=== PATIENT | male | born 1965 | race Caucasian/White ===

== ENCOUNTER 2019-01-08 06:33 | Day surgery (SDC) | payer OTHER ==
[~2019-01-08 06:33] MED LIST: Lactated Ringers 1,000 ML IV SCH
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
[2019-01-08] MEDS ORDERED: Lidocaine 1% 20 ML MDV ONE (07:22)
[2019-01-08] MEDS ORDERED: Propofol 200 MG/20 ML SDV ONE (07:24)
[2019-01-08] MEDS ORDERED: fentaNYL 250 MCG/5 ML SDV ONE (07:25)
[2019-01-08] MEDS ORDERED: Midazolam 1 MG/ML 2 ML SDV ONE (07:25)
[2019-01-08] MEDS ORDERED: Lidocaine 2% 5 ML SDV ONE (07:25)
[2019-01-08] MEDS ORDERED: Ondansetron 4 MG/2 ML SDV ONE (07:27)
[2019-01-08] MEDS ORDERED: Acetaminophen/HYDROcodone 325-5 MG Tab PO PRN (08:00)
[2019-01-08] MEDS ORDERED: ceFAZolin 2 GM in Premix Bag 1 BAG IV SCH (08:00)
[2019-01-08] MEDS ORDERED: EPINEPHrine 1:10,000 1 MG/10 ML Syringe IVPUSH PRN (08:23)
[2019-01-08] MEDS ORDERED: Albuterol 0.083% 2.5 MG/3 ML Neb Soln NEB PRN (08:23)
[2019-01-08] MEDS ORDERED: Naloxone 0.4 MG/ML Syringe IVPUSH PRN (08:23)
[2019-01-08] MEDS ORDERED: Atropine 0.1 MG/ML 10 ML Syringe IVPUSH PRN ×2 (08:23)
[2019-01-08] MEDS ORDERED: 50% Dextrose in Water 50 ML Syringe IVPUSH PRN (08:23)
[2019-01-08] MEDS ORDERED: fentaNYL 100 MCG/2 ML SDV IVPUSH PRN (08:23)
--- NOTE | 2019-01-08 08:56 | PCM.OPNOTE ---
- General Post-Op/Procedure Note Date of Surgery/Procedure: 01/08/19 Operative Procedure(s): Right knee arthroscopy with chondroplasty mfc, lfc Post-Op Diagnosis: R knee DJD Anesthesia Technique: General LMA Primary Surgeon: Reba Sheldon Developing Machine Operator: Jazmin Ortiz in mLs: 5 Condition: Good Free Text/Narrative:: tt=25 min #[id number]
[2019-01-08 10:17] VITALS: BP 128/74
--- NOTE | 2019-01-08 15:06 | OR ---
SURGEON: Reba Sheldon MD DATE OF PROCEDURE: 01/08/2019 PREOPERATIVE DIAGNOSIS: Degenerative joint disease, right knee. POSTOPERATIVE DIAGNOSIS: Degenerative joint disease, right knee. PROCEDURE: Right knee arthroscopy with chondroplasty of the medial and lateral femoral condyle. CLOTHES MARKER: GOLDIE Guzman. ANESTHESIA: General. ESTIMATED BLOOD LOSS: 5 mL. TOURNIQUET TIME: 25 minutes. COMPLICATIONS: None. DEEP VENOUS THROMBOSIS PROPHYLAXIS: Not indicated. IMPLANTS USED: None. BRIEF HISTORY: Joe is a 53-year-old male who has had complaint of persistent right knee pain along with inability to fully extend his knee. X-rays did show degenerative findings. Due to his lack of response to conservative treatment, I did recommend surgical intervention. The risks and goals of the procedure were discussed with the patient and were documented preoperatively. He agreed to proceed. DESCRIPTION OF PROCEDURE: The patient was properly identified and brought to the operating room. He was transferred from the OR cart and placed on the operating table in supine position. General anesthesia was administered. After adequate anesthesia was obtained, a well-padded tourniquet was applied to the right lower extremity. The right lower extremity was then prepped in standard fashion using ChloraPrep solution. It was then sterilely draped. A time-out was performed to ensure correct site and procedure. Preoperative antibiotics were given. The surgical site had been marked preoperatively. An Esmarch was used to exsanguinate the right lower extremity and the tourniquet was inflated to 250 mmHg. A lateral portal arthrotomy was established. Blunt trocar and cannula were introduced into the suprapatellar pouch. Camera, inflow, and outflow were assembled. The suprapatellar pouch showed no significant synovitis. The patellofemoral joint was visualized. The patella appeared to track centrally. 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 I then extended down to the lateral and medial gutters. No loose bodies were identified. Osteophyte formation was noted along the medial femoral condyle as well as the lateral femoral condyle. I then entered the medial compartment. A medial portal arthrotomy was established. A blunt probe was inserted. The meniscus was visualized and probed. No tearing or instability was noted. He did have an area of grade 3 chondromalacia with loose cartilaginous flaps along the lateral aspect of the medial femoral condyle. This was resected with a shaver to a stable remnant. Diffuse grade 2 to grade 3 chondromalacia was noted along the medial tibial plateau. I then entered the notch. Both the ACL and PCL were visualized and probed. As it was probing the ACL, the probe did break along the shaft. I was able to place a retriever. It was difficult to pull the broken probe through the original portal and I elected to make a small anterior portal to retrieve the probe. It was retrieved without difficulty. The ACL and PCL were again probed. They were found to be intact. Mild synovitis was noted along the anterior aspect of the notch and this was resected with the shaver. I then entered the lateral compartment. The lateral meniscus was visualized and probed and found to be intact. He did have diffuse grade 2 to grade 3 chondromalacia along the lateral tibial plateau. There was also an area of full thickness cartilage loss along the lateral femoral condyle. This did show some instability of the cartilage and a shaver was introduced to perform a chondroplasty. The remainder of the cartilage appeared intact. Instruments were then removed from the knee. The portal sites were closed with 3-0 nylon. 1% Lidocaine was injected along the portal tracts. Xeroform gauze was placed over the wounds and a bulky dressing was applied. Tourniquet was then deflated. He was awakened from his anesthetic and transferred back to the operating room cart. He was brought to recovery room in stable condition. All needle and sponge counts were correct. FELIBERTO / JOHN /[id number]
== END 2019-01-08 10:44 | disposition home or self-care (01) ==
LOC: MW.SDS 06:33
PROVIDERS: ATTEND Orthopaedic Surgery
DX: M17.11 Unilateral primary osteoarthritis, right knee (principal); M22.41 Chondromalacia patellae, right knee; M65.861 Other synovitis and tenosynovitis, right lower leg; E11.9 Type 2 diabetes mellitus without complications; Z79.4 Long term (current) use of insulin
CPT/HCPCS: 29877; 82962; J2001; J2250; J2405; J2704; J3010; J7120; 01400; 88304

== ENCOUNTER 2024-08-22 16:32 | Inpatient (IN) | payer OTHER ==
[2024-08-22 16:58] LABS: BASOPHILS ABSOLUTE AUTO 0.02 K/uL (0.00-0.20); BASOPHILS PERCENT AUTO 0.2 % (0.0-1.0); EOSINOPHILS PERCENT AUTO 1.1 % (0.0-6.0); HEMATOCRIT 44.9 % (42.0-52.0); HEMOGLOBIN 14.7 g/dL (14.0-18.0); IMMATURE GRAN ABSOLUTE AUTO 0.02 K/uL (0.00-0.05); IMMATURE GRAN PERCENT AUTO 0.2 % (0.0-0.4); LYMPHOCYTES ABSOLUTE AUTO 0.75 K/uL (1.00-4.80); LYMPHOCYTES PERCENT AUTO 8.1 % (24.0-44.0); MEAN CORPUSCULAR HEMOGLOBIN 26.4 pg (28.0-32.0); MEAN CORPUSCULAR HGB CONC 32.7 g/dL (32.0-36.0); MEAN CORPUSCULAR VOLUME 80.8 fL (83.0-99.0); MONOCYTES ABSOLUTE AUTO 0.61 K/uL (0.00-0.80); MONOCYTES PERCENT AUTO 6.6 % (0.0-8.0); NEUTROPHILS ABSOLUTE AUTO 7.74 K/uL (1.80-7.70); NEUTROPHILS PERCENT AUTO 83.8 % (41.0-71.0); PLATELET COUNT,PLT 249 K/uL (150-400); RED BLOOD CELL COUNT 5.56 M/uL (4.52-5.90); WHITE BLOOD CELL COUNT,WBC 9.24 K/uL (3.9-11.3)
[2024-08-22] MEDS: Sodium Chloride 0.9% 1,000 ML IV ONE (16:58)
[2024-08-22] MEDS: Sodium Chloride 0.9% 2.5 ML Syringe FLUSH PRN (16:59)
[2024-08-22] MEDS: Sodium Chloride 0.9% 10 ML Syringe FLUSH PRN (16:59)
[2024-08-22] MEDS: Morphine 4 MG/ML Syringe IVPUSH ONE (17:00)
[2024-08-22] MEDS: Ondansetron 4 MG/2 ML SDV IVPUSH ONE (17:00)
[2024-08-22] MEDS: Piperacillin/Tazobactam 4.5 GM in Sodium Chloride 0.9% 100 ML IV ONE (17:21)
[2024-08-22 17:30] LABS: A/G RATIO 0.5 (0.9-1.6); ALBUMIN 2.7 g/dL (3.4-5.0); BILIRUBIN TOTAL 1.5 mg/dL (0.2-1.0); CALCIUM 9.2 mg/dL (8.5-10.1); CARBON DIOXIDE,CO2 27.6 mmol/L (21.0-32.0); EST CRCL DRUG DOSING (CG) 93.62 mL/min; POTASSIUM,K 3.5 mmol/L (3.5-5.1); PROTEIN TOTAL,TP 7.7 g/dL (6.4-8.2)
[2024-08-22] MEDS ORDERED: diphenhydrAMINE 50 MG/ML SDV IVPUSH PRN (17:37)
[2024-08-22] MEDS ORDERED: Ondansetron 4 MG/2 ML SDV IVPUSH PRN (17:37)
[2024-08-22] MEDS ORDERED: Sodium Chloride 0.9% 20 ML SDV IV PRN (17:37)
[2024-08-22] MEDS ORDERED: Sodium Chloride 0.9% 10 ML Syringe FLUSH PRN (17:37)
[2024-08-22] MEDS ORDERED: HYDROmorphone 2 MG/ML Syringe IVPUSH PRN (17:37)
[2024-08-22] MEDS ORDERED: Sodium Chloride 0.9% 2.5 ML Syringe FLUSH PRN (17:37)
[2024-08-22] MEDS ORDERED: Lactated Ringers 1,000 ML IV SCH (17:45)
[2024-08-22] MEDS ORDERED: Propofol 200 MG/20 ML SDV ONE (18:01)
[2024-08-22] MEDS ORDERED: fentaNYL 100 MCG/2 ML SDV ONE (18:01)
[2024-08-22] MEDS ORDERED: HYDROmorphone 0.5 MG/0.5 ML Syringe IVPUSH PRN (18:04)
[2024-08-22] MEDS ORDERED: Succinylcholine/Sod PF 100 MG/5 ML SYRINGE IV ONE (18:05)
[2024-08-22] MEDS ORDERED: Rocuronium Bromide 50 MG/5 ML Syringe ONE (18:06)
[2024-08-22 18:23] LABS: HEMOGLOBIN A1C 9.1 %
[2024-08-22] MEDS ORDERED: dexmedeTOMIDine HCl 200 MCG/2 ML SDV ONE (18:24)
[2024-08-22] MEDS ORDERED: Water For Injection, Sterile 20 ML ONE (18:24)
[2024-08-22] MEDS ORDERED: Bupivacaine 0.25% 30 ML SDV ONE (18:24)
[2024-08-22] MEDS ORDERED: Bupivacaine 0.5% 10 ML SDV ONE (18:49)
[2024-08-22] MEDS ORDERED: ceFAZolin 1 GM Vial ONE (18:50)
[2024-08-22] MEDS ORDERED: Ondansetron 4 MG/2 ML SDV ONE (19:48)
[2024-08-22] MEDS ORDERED: Ketamine HCL/NACL, ISO-OSM 50 MG/5 ML Syringe ONE (20:00)
[2024-08-22] MEDS ORDERED: Ketorolac 30 MG/ML SDV ONE (20:39)
[2024-08-22] MEDS ORDERED: Sugammadex Sodium 200 MG/2 ML VIAL IV ONE (20:39)
[2024-08-22] MEDS ORDERED: Glucagon,Human Recombinant 1 MG Vial IM PRN (21:22)
[2024-08-22] MEDS ORDERED: 50% Dextrose in Water 50 ML Syringe IVPUSH PRN (21:22)
[2024-08-22 22:04] LABS: HEMOGLOBIN 12.5 g/dL (14.0-18.0); MEAN CORPUSCULAR HEMOGLOBIN 26.6 pg (28.0-32.0); MEAN CORPUSCULAR HGB CONC 32.1 g/dL (32.0-36.0); MEAN PLATELET VOLUME 10.9 fL (9.4-12.4); PLATELET COUNT,PLT 212 K/uL (150-400); WHITE BLOOD CELL COUNT,WBC 8.48 K/uL (3.9-11.3)
[2024-08-22 22:22] LABS: CALCIUM 8.3 mg/dL (8.5-10.1); CARBON DIOXIDE,CO2 29.3 mmol/L (21.0-32.0); EST CRCL DRUG DOSING (CG) 93.62 mL/min; POTASSIUM,K 3.8 mmol/L (3.5-5.1)
[2024-08-23] MEDS: Sodium Chloride 0.9% 1,000 ML IV SCH (02:15)
[2024-08-23] MEDS: Piperacillin/Tazobactam 4.5 GM in Sodium Chloride 0.9% 100 ML IV SCH (02:15)
[2024-08-23] MEDS: Ketorolac 30 MG/ML SDV IVPUSH SCH ×2 (02:16→07:00)
[2024-08-23] MEDS: Acetaminophen 1,000 MG in Premix Bag 1 BAG IV SCH (02:17)
[2024-08-23 06:14] LABS: BASOPHILS ABSOLUTE AUTO 0.01 K/uL (0.00-0.20); BASOPHILS PERCENT AUTO 0.1 % (0.0-1.0); EOSINOPHILS ABSOLUTE AUTO 0.05 K/uL (0.00-0.45); EOSINOPHILS PERCENT AUTO 0.7 % (0.0-6.0); HEMOGLOBIN 12.2 g/dL (14.0-18.0); IMMATURE GRAN ABSOLUTE AUTO 0.01 K/uL (0.00-0.05); IMMATURE GRAN PERCENT AUTO 0.1 % (0.0-0.4); LYMPHOCYTES ABSOLUTE AUTO 0.53 K/uL (1.00-4.80); LYMPHOCYTES PERCENT AUTO 7.2 % (24.0-44.0); MEAN CORPUSCULAR HEMOGLOBIN 26.5 pg (28.0-32.0); MEAN CORPUSCULAR HGB CONC 32.1 g/dL (32.0-36.0); MEAN CORPUSCULAR VOLUME 82.6 fL (83.0-99.0); MEAN PLATELET VOLUME 10.6 fL (9.4-12.4); MONOCYTES ABSOLUTE AUTO 0.67 K/uL (0.00-0.80); NEUTROPHILS ABSOLUTE AUTO 6.14 K/uL (1.80-7.70); NEUTROPHILS PERCENT AUTO 82.9 % (41.0-71.0); PLATELET COUNT,PLT 219 K/uL (150-400); WHITE BLOOD CELL COUNT,WBC 7.41 K/uL (3.9-11.3)
[2024-08-23 06:30] LABS: CARBON DIOXIDE,CO2 29.8 mmol/L (21.0-32.0); CREATININE 0.9 mg/dL (0.8-1.3); EST CRCL DRUG DOSING (CG) 104.02 mL/min; POTASSIUM,K 3.4 mmol/L (3.5-5.1)
[2024-08-23] MEDS: Insulin Aspart 100 Units/ML 3 ML Pen SUBCUT SCH (07:50)
[2024-08-23] MEDS: Cyclobenzaprine 10 MG Tab PO SCH (09:37)
[2024-08-23] MEDS: Enoxaparin 40 MG/0.4 ML Syringe SUBCUT SCH (17:48)
[2024-08-23] MEDS: Polyethylene Glycol 3350 Powder 17 GM Packet PO SCH (20:48)
[2024-08-23] MEDS: Multivitamin Tab PO SCH (20:48)
[2024-08-24] MEDS: oxyCODONE 5 MG Tab PO PRN (02:45)
[2024-08-24 05:33] LABS: HEMATOCRIT 38.6 % (42.0-52.0); HEMOGLOBIN 12.3 g/dL (14.0-18.0); MEAN CORPUSCULAR HEMOGLOBIN 26.3 pg (28.0-32.0); MEAN CORPUSCULAR HGB CONC 31.9 g/dL (32.0-36.0); MEAN CORPUSCULAR VOLUME 82.5 fL (83.0-99.0); PLATELET COUNT,PLT 246 K/uL (150-400); RED BLOOD CELL COUNT 4.68 M/uL (4.52-5.90); WHITE BLOOD CELL COUNT,WBC 8.06 K/uL (3.9-11.3)
[2024-08-24 05:53] LABS: CALCIUM 8.5 mg/dL (8.5-10.1); CREATININE 0.8 mg/dL (0.8-1.3); EST CRCL DRUG DOSING (CG) 117.02 mL/min; POTASSIUM,K 3.4 mmol/L (3.5-5.1)
[2024-08-24] MEDS ORDERED: Ketorolac 10 MG Tab PO PRN (08:38)
[2024-08-24] MEDS: Ciprofloxacin 500 MG Tab PO SCH (08:55)
[2024-08-24] MEDS: metroNIDAZOLE 250 MG Tab PO SCH (08:55)
[2024-08-24] MEDS: Bisacodyl 5 MG Tab PO SCH (08:55)
[2024-08-24] MEDS: Polyethylene Glycol 3350 Powder 17 GM Packet PO SCH (08:55)
[2024-08-24] MEDS: Potassium Chloride 10 MEQ Tab.ER PO SCH (08:55)
[2024-08-24] MEDS: Cyclobenzaprine 10 MG Tab PO SCH (13:45)
[2024-08-25 10:50] LABS: CALCIUM 8.8 mg/dL (8.5-10.1); CREATININE 0.8 mg/dL (0.8-1.3); EST CRCL DRUG DOSING (CG) 117.02 mL/min; PHOSPHORUS 3.1 mg/dL (2.6-4.7); POTASSIUM,K 3.3 mmol/L (3.5-5.1)
[2024-08-25] MEDS: Potassium Chloride 20 MEQ Tab.ER PO SCH (11:53)
[2024-08-25 17:50] VITALS: BP 120/76; PULSE 98
== END 2024-08-25 18:15 | disposition home or self-care (01) | DRG 398 ==
LOC: MW.ED 16:32 → MW.MS 17:37 → MW.SDS 18:54 → OBSVTOIN 22:03 → MW.MS 22:11
PROVIDERS: ADMIT Surgery; ATTEND Surgery
PROC: 0WJG4ZZ Inspection of Peritoneal Cavity, Percutaneous Endoscopic Approach (ICD-10-PCS; 2024-08-22)
PROC: 0DTJ0ZZ Resection of Appendix, Open Approach (ICD-10-PCS; principal; 2024-08-22 19:00)
DX: K35.211 Acute appendicitis with generalized peritonitis, with perforation and abscess (principal); K56.7 Ileus, unspecified; K91.89 Other postprocedural complications and disorders of digestive system; M19.90 Unspecified osteoarthritis, unspecified site; E11.9 Type 2 diabetes mellitus without complications; E66.9 Obesity, unspecified; E87.6 Hypokalemia; Z98.890 Other specified postprocedural states; Z87.81 Personal history of (healed) traumatic fracture; Z68.33 Body mass index [BMI] 33.0-33.9, adult; Z87.442 Personal history of urinary calculi
CPT/HCPCS: 00840; 36415; 64488; 80048; 80053; 82947; 83036; 83605; 83735; 84100; 85025; 85027; 87040; 96365; 96375; 99285-25; A9270-GY; J0131; J0330; J0665; J0690; J1650; J1815-GY; J1885; J2270; J2405; J2543; J2704; J3010; J3490; J7030

== ENCOUNTER 2024-09-07 10:58 | Emergency (ER) | payer OTHER ==
[2024-09-07 11:12] LABS: BASOPHILS ABSOLUTE AUTO 0.04 K/uL (0.00-0.20); BASOPHILS PERCENT AUTO 0.5 % (0.0-1.0); EOSINOPHILS ABSOLUTE AUTO 0.09 K/uL (0.00-0.45); HEMATOCRIT 46.6 % (42.0-52.0); HEMOGLOBIN 15.2 g/dL (14.0-18.0); IMMATURE GRAN ABSOLUTE AUTO 0.03 K/uL (0.00-0.05); IMMATURE GRAN PERCENT AUTO 0.3 % (0.0-0.4); LYMPHOCYTES ABSOLUTE AUTO 1.47 K/uL (1.00-4.80); LYMPHOCYTES PERCENT AUTO 16.8 % (24.0-44.0); MEAN CORPUSCULAR HEMOGLOBIN 26.4 pg (28.0-32.0); MEAN CORPUSCULAR HGB CONC 32.6 g/dL (32.0-36.0); MEAN CORPUSCULAR VOLUME 80.9 fL (83.0-99.0); MEAN PLATELET VOLUME 9.7 fL (9.4-12.4); MONOCYTES ABSOLUTE AUTO 0.65 K/uL (0.00-0.80); MONOCYTES PERCENT AUTO 7.4 % (0.0-8.0); NEUTROPHILS ABSOLUTE AUTO 6.49 K/uL (1.80-7.70); PLATELET COUNT,PLT 458 K/uL (150-400); RED BLOOD CELL COUNT 5.76 M/uL (4.52-5.90); WHITE BLOOD CELL COUNT,WBC 8.77 K/uL (3.9-11.3)
[2024-09-07 11:36] LABS: A/G RATIO 0.7 (0.9-1.6); ALBUMIN 3.2 g/dL (3.4-5.0); BILIRUBIN TOTAL 0.8 mg/dL (0.2-1.0); CALCIUM 9.6 mg/dL (8.5-10.1); CARBON DIOXIDE,CO2 29.9 mmol/L (21.0-32.0); EST CRCL DRUG DOSING (CG) 93.62 mL/min; POTASSIUM,K 4.9 mmol/L (3.5-5.1); PROTEIN TOTAL,TP 8.1 g/dL (6.4-8.2)
[2024-09-07 11:39] LABS: LACTIC ACID 1.8 mmol/L (0.4-2.0)
[2024-09-07 11:57] LABS: APPEARANCE,URINE CLEAR; BILIRUBIN,URINE NEGATIVE (NEGATIVE); COLOR,URINE YELLOW; GLUCOSE,URINE NEGATIVE (NEGATIVE); KETONES,URINE NEGATIVE (NEGATIVE); LEUKOCYTE ESTERASE,URINE NEGATIVE (NEGATIVE); NITRITE,URINE NEGATIVE (NEGATIVE); OCCULT BLOOD,URINE NEGATIVE (NEGATIVE); PROTEIN,URINE TRACE mg/dL (NEGATIVE); UROBILINOGEN,URINE 0.2 EU/dL (<2.0)
[2024-09-07 12:50] LABS: BACTERIA,URINE 1+ (NEGATIVE); RBC,URINE 0-2 (0-2/HPF); WBC,URINE 0-5 (0-5/HPF)
[2024-09-07 13:00] LABS: EPITHELIAL CELLS,URINE RARE (NONE-FEW)
[2024-09-07] MEDS: Ondansetron 4 MG/2 ML SDV IVPUSH ONE (13:39)
[2024-09-07] MEDS: Morphine 4 MG/ML Syringe IVPUSH ONE (13:39)
[2024-09-07] MEDS: Iopamidol 755 MG/ML 500 ML Multipack Bottle IVPUSH STA (13:58)
[2024-09-07] MEDS: Magnesium Citrate Solution 296 ML Bottle PO ONE (15:11)
[2024-09-07 15:17] VITALS: BP 109/64; PULSE 95
== END 2024-09-07 15:16 | disposition home or self-care (01) ==
LOC: MW.ED 10:58
DX: T81.40XA Infection following a procedure, unspecified, initial encounter (principal); E66.9 Obesity, unspecified; Z68.31 Body mass index [BMI] 31.0-31.9, adult; Z90.49 Acquired absence of other specified parts of digestive tract; Z79.899 Other long term (current) drug therapy; Z75.8 Other problems related to medical facilities and other health care
CPT/HCPCS: 36415; 74177; 80053; 81001; 83605; 85025; 87040; 96374; 96375; 99284; A9270; J2270; J2405; Q9967